=== PATIENT | female | born 1985 | race Caucasian/White ===

== ENCOUNTER 2019-09-27 08:22 | Emergency (ER) | payer OTHER, SELFPAY ==
[2019-09-27 08:33] VITALS: BP 124/70; PULSE 76; RESP 18; TEMP 36.9; O2SAT 100
--- NOTE | 2019-09-27 08:47 | ED.GENADULT ---
HPI - General Adult General Chief complaint: Ear Stated complaint: Ear infection Time Seen by Provider: 09/27/19 08:47 Source: patient and RN notes reviewed Mode of arrival: ambulatory Limitations: no limitations History of Present Illness HPI narrative: 34-year-old female presents with complaints of right ear with pressure, clogged feeling, and having difficulty hearing for 1 day. Denies swimming or getting water into ear. Denies itching and drainage. Denies URI symptoms. No high fevers or chills. Denies injury to the ear. No nasal drainage and congestion. Denies nausea, vomiting, tinnitus, and dizziness. The patient reports she have not been diagnosed with COVID-19. The patient reports she is not waiting for the results of a COVID-19 lab test. The patient reports she do not have fever, chills, weakness, fatigue, myalgia, or facial swelling. The patient reports she do not have a new or worsening cough or shortness of breath. Denies chest pain. The patient reports she do not have any rhinorrhea, congestion, sore throat, abdominal pain, and diarrhea. Tolerating po intake well. Denies recent traveling. Denies concerns for COVID-19 or exposures been home with limited outdoor exposure except for essential household needs, work, and return home. At this time, patient is not suspected of having COVID-19. Some parts of this dictation were generated by voice recognition software and may contain typographical and/or grammatical inaccuracies. Related Data Home Medications Medication Instructions Recorded Confirmed levocetirizine [Xyzal] 5 mg PO DAILY 09/27/19 09/27/19 Allergies Allergy/AdvReac Type Severity Reaction Status Date / Time No Known Allergies Allergy Verified 09/27/19 08:40 Review of Systems Review of Systems: Narrative: CONSTITUTIONAL: Denies fever, chills, sweats. EYES: Denies visual changes, redness, discharge. ENT: Denies rhinorrhea, congestion, sore throat otalgia. Complains of right ear with pressure, clogged feeling, and having difficulty hearing. Denies drainage and itching. CARDIOVASCULAR: Denies chest pain, palpitations, edema. RESPIRATORY: Denies dyspnea, wheezing, cough. GASTROINTESTINAL: Denies abdominal pain, nausea, vomiting, diarrhea. GENITOURINARY: Denies dysuria, hematuria, abnormal discharge. SKIN: Denies rash or itching. MUSCULOSKELETAL: Denies acute back pain, joint pain, or myalgia. NEUROLOGIC: Denies numbness or focal weakness. PSYCHIATRIC: Denies anxiety or depression. All systems reviewed & are unremarkable except as noted in HPI and below. [facility] Past Medical History Medical History (Updated 09/27/19 @ 10:18 by DOC Pate) delivery delivered X2 Hx of retained foreign body fully removed Screw removed after LT tib-fib repair IUD complication Surgically removed after embedded in intestines Tibia/fibula fracture LT leg had to have luiz and screws inserted Surgical History Surgical History (Updated 09/27/19 @ 09:11 by DOC Pate) H/O section History of tubal ligation Family History Family History (Updated 09/27/19 @ 09:12 by DOC Pate) Father Unknown family medical history Mother Unknown family medical history Grandparent Alive and well Social History Social History (Updated 09/27/19 @ 09:12 by DOC Pate) Smoking status: Never smoker Second hand tobacco smoke exposure: No Alcohol intake: never Substance use: never Living arrangements: with family Occupation/Education: occupation Gender identity (if verbalized by the patient): Female Sexual Orientation (if Verbalized by the Patient): Straight or Heterosexual Comments At time of signature, I have reviewed and agree with nursing past medical, surgical, social, and family history. Please see nursing chart for further information. There is no relevant family history pertinent to the presenting complaint. Exam Narrat
== END 2019-09-27 09:05 | disposition home or self-care (01) ==
PROVIDERS: Emergency Provider Nurse Practitioner Family
DX: H60.391 Other infective otitis externa, right ear (principal)
CPT/HCPCS: 99213; G0463